=== PATIENT | male | born 1985 | race Caucasian/White ===

== ENCOUNTER 2016-09-15 08:25 | Emergency (ER) | payer BC ==
--- NOTE | 2016-09-15 17:55 | RAD ---
RIGHT ANKLE THREE VIEWS: 09/15/16 There is some bony flecks at the tip of the lateral malleolus which along with some soft tissue swel ling suggests some cortical avulsions. No major fracture was seen. The joint itself appears normal. The articular surfaces are smooth. IMPRESSION: Soft tissue swelling with suggestion of cortical avulsions from the tip of the lateral malleolus. POS: HOME
== END 2016-09-15 09:11 | disposition home or self-care (01) ==
LOC: BURERS 08:25
DX: S82.61XA Displaced fracture of lateral malleolus of right fibula, initial encounter for closed fracture (principal); F17.220 Nicotine dependence, chewing tobacco, uncomplicated; X58.XXXA Exposure to other specified factors, initial encounter

== ENCOUNTER 2019-03-21 00:52 | Emergency (ER) | payer BC ==
[2019-03-21] MEDS ORDERED: Dicyclomine 20 MG TAB ONE (01:10)
[2019-03-21] MEDS ORDERED: Ondansetron PF 4 MG/2 ML Vial ONE (01:10)
[2019-03-21 01:34] LABS: #Basophils 0.1 thou/uL (0.0-0.2); #Eosinphils 0.1 thou/uL (0.0-0.7); #Lymphocytes 0.4 thou/uL (1.20-3.40); #Monocytes 0.7 thou/uL (0.11-0.59); #Neutrophils 15.7 thou/uL (1.40-6.50); %Basophils 0.3 % (0.0-1.0); %Eosinophils 0.5 % (0.0-10.0); %Lymphocytes 2.1 % (21.0-51.0); %Monocytes 4.4 % (0.0-10.0); %Neutrophils 92.7 % (42.0-75.0); Hemoglobin 16.1 g/dL (14.0-18.0); Large Platelets SLIGHT; MDiff Complete? YES; Mean Corpuscular HGB CONC 33.3 g/dL (32.0-36.0); Mean Corpuscular Hemoglobin 30.3 pg (27.0-31.0); Mean Corpuscular Volume 91.1 fL (78.0-98.0); Platelet Count 196 thou/uL (130-400); Platelet Morphology Comment Appears Adequate; RBC Distribution Width 12.1 % (11.5-14.5); RBC Morphology Normal; Red Blood Cell (RBC) Count 5.31 mill/uL (4.70-6.10)
[2019-03-21 01:36] LABS: ALT (SGPT) 18 U/L (8-55); AST (SGOT) 19 U/L (5-34); Albumin 4.6 g/dL (3.5-5.0); Alkaline Phosphatase 86 U/L (40-110); Anion Gap 15 mmol/L (10-20); BUN (Urea Nitrogen) 15 mg/dL (8.9-20.6); Bilirubin, Total 0.8 mg/dL (0.2-1.2); Calc. Creatinine Clearance 0 mL/min (70-130); Calcium 9.4 mg/dL (7.8-10.44); Carbon Dioxide 25 mmol/L (22-29); Chloride 104 mmol/L (98-107); Estimated GFR-MDRD 68; Globulin 3.2 g/dL (2.4-3.5); Glucose 115 mg/dL (70-105); Lipase 21 U/L (8-78); Potassium 3.9 mmol/L (3.5-5.1); Protein, Total 7.8 g/dL (6.0-8.3); Sodium 140 mmol/L (136-145)
[2019-03-21] MEDS ORDERED: Ketorolac Tromethamine 30 MG/ML VIAL ONE (01:44)
== END 2019-03-21 01:54 | disposition home or self-care (01) ==
LOC: BURERS 00:52
DX: K52.9 Noninfective gastroenteritis and colitis, unspecified (principal); F17.220 Nicotine dependence, chewing tobacco, uncomplicated; R11.2 Nausea with vomiting, unspecified
CPT/HCPCS: 80053; 83690; 85025; 96361; 96374; 96375; J1885; J2405

== ENCOUNTER 2021-11-13 10:02 | Emergency (ER) | payer OTHER, BC ==
[2021-11-13 10:47] LABS: Hemoglobin 14.5 g/dL (14.0-18.0); Mean Corpuscular HGB CONC 33.6 g/dL (32.0-36.0); Mean Corpuscular Volume 92.4 fL (78.0-98.0); Mean Platelet Volume 9.9 fL (7.4-10.4); Platelet Count 172 thou/uL (130-400); RBC Distribution Width 12.4 % (11.5-14.5); Red Blood Cell (RBC) Count 4.68 mill/uL (4.70-6.10)
[2021-11-13 11:05] LABS: ALT (SGPT) 21 U/L (8-55); AST (SGOT) 17 U/L (5-34); Albumin 4.4 g/dL (3.5-5.0); Alkaline Phosphatase 62 U/L (40-110); Anion Gap 14 mmol/L (10-20); BUN (Urea Nitrogen) 7 mg/dL (8.9-20.6); Bilirubin, Total 0.4 mg/dL (0.2-1.2); CK (CPK) 133 U/L (30-200); Calc. Creatinine Clearance 0 mL/min (70-130); Calcium 8.8 mg/dL (7.8-10.44); Carbon Dioxide 26 mmol/L (22-29); Chloride 105 mmol/L (98-107); Estimated GFR 96; Globulin 2.8 g/dL (2.4-3.5); Glucose 92 mg/dL (70-105); Potassium 3.7 mmol/L (3.5-5.1); Protein, Total 7.2 g/dL (6.0-8.3); Sodium 141 mmol/L (136-145)
[2021-11-13 11:16] LABS: Band 1 % (5-11); Lymphocytes 8 % (21-51); MDiff Complete? YES; Monocytes 17 % (0-10); Neutrophil 74 % (42-75); Platelet Morphology Comment Appears Adequate; RBC Morphology Normal
== END 2021-11-13 11:57 | disposition home or self-care (01) ==
LOC: BURERS 10:02
DX: U07.1 COVID-19 (principal); T67.5XXA Heat exhaustion, unspecified, initial encounter; X30.XXXA Exposure to excessive natural heat, initial encounter; Y92.69 Other specified industrial and construction area as the place of occurrence of the external cause
CPT/HCPCS: 80053; 82550; 85025; 87804; 96360; U0003; U0005

== ENCOUNTER 2022-04-16 22:24 | Emergency (ER) | payer BC ==
[2022-04-16] MEDS ORDERED: methylPREDNISolone Sod Succ/PF 125 MG/2 ML VIAL ONE (22:47)
[2022-04-16] MEDS ORDERED: hydrOXYzine 25 MG TAB ONE (22:47)
== END 2022-04-16 22:55 | disposition home or self-care (01) ==
LOC: BURERS 22:24
DX: L23.7 Allergic contact dermatitis due to plants, except food (principal); F17.220 Nicotine dependence, chewing tobacco, uncomplicated
CPT/HCPCS: 96372; 99282; J2930